=== PATIENT | female | born 1935 | race Caucasian/White ===

== ENCOUNTER 2016-12-02 08:10 | Emergency (ER) | payer OTHER, MEDICARE, MEDICAID ==
[~2016-12-02] VITALS: Ht 152.4 cm; Wt 65.0 kg
[~2016-12-02 08:10] MED LIST: AMPI250 PO; ATOR40TA PO; BISA10R PR; BUPR150T3 PO; CANA100T PO; CARV6.252 PO; CITA20TA4 PO; CRAN425C2 PO; DEPA500T3 PO; DIFL200T PO; FERR324T4 PO; FLON0.053 EACH NARE; FOSA70TA PO; FOSI10TA4 PO; GABA300C3 PO; GLUC1KIT IM; HUMSS SQ; ISOS30 PO; LASI20TA PO; LORA0.5T PO; LORA10TA PO; MEMA7CAP PO; MILKSUS5 PO; OMEP20TA PO; RIVA15 PO; ROBISYP6 PO; ULTR50TA PO; VITA500C PO; ZINC220T PO
--- NOTE | 2016-12-02 08:21 | PD ---
HPI Chief Complaint: fall Time Seen by Provider: 08:12 Travel History International Travel<30 days: No Contact w/Intl Traveler<30days: No Traveled to known affect area: No History of Present Illness HPI 81-year-old female came to the emergency room with history of possible fall from her wheelchair this morning. Patient is a [facility] resident and was found on the floor in a position. Upon asking the staff found out that she did fall and hit her head. Patient is on Xarelto and they were concerned about internal head injury. Patient is awake but not fully oriented but that's her baseline as per the staff and paramedics. She is answering questions and upon asking says her forehead hurts. 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 Patient is wheelchair-bound. No history of vomiting. Vital signs were within acceptable limits. Patient is diabetic and her blood glucose level by paramedics was 95. Patient is a DNR. Currently there is no family member in the room. PFSH Past Medical History Narrative Medical List of her past medical, surgical, social and family history is reviewed from the nursing note. Hx Anticoagulant Therapy: Yes Anemia: Yes Anxiety: Yes Depression: Yes Cardiovascular Problems: Yes (chf) High Cholesterol: Yes Congestive Heart Failure: Yes Cerebrovascular Accident: Yes Dementia: Yes Diabetes: Yes (type 2) Diminished Hearing: No Diverticulitis: Yes Gastrointestinal Disorders: Yes (diverticulitis current) Genitourinary: Yes (uti current) Hiatal Hernia: Yes Hypertension: Yes Musculoskeletal: Yes (OSTEOPOROSIS) Neurologic: Yes (cva left sided weakness , neuropathy) Respiratory: Yes (PE) Seizures: Yes Ulcer: Yes (sacral) Menopausal: Yes Past Surgical History Cardiac Surgery: Yes (HYPERTROPHY SX A TEENAGER) Hysterectomy: Yes Social History Alcohol Use: No Tobacco Use: No Substance Use: No Allergies-Medications (Allergen,Severity, Reaction): Coded Allergies: Acetaminophen (Unverified Allergy, Severe, 12/18/15) Sulfa (Unverified Allergy, Severe, 12/18/15) Comments List of her allergies reviewed from the nursing note Reported Meds & Prescriptions Reported Meds & Active Scripts Active Macrobid (Nitrofurantoin Monoh/Nitrofur Macro) 100 Mg Cap 100 Mg PO BID 10 Days Invokana (Canagliflozin) 100 Mg Tab 100 Mg PO DAILY@0600 Ferrous Sulfate 325 Mg Tab 325 Mg PO BID 30 Days Ultram (Tramadol HCl) 50 Mg Tab 50 Mg PO TID PRN Reported Xarelto 15 Mg Tab (Rivaroxaban) 15 Mg Tab 15 Mg PO DAILY Depakote ER 500 mg (Divalproex Sodium) 500 Mg Tab 1 Tab PO DAILY Ampicillin Cap 250 Mg (Ampicillin) 250 Mg Cap 250 Mg PO Ascorbic Acid 500 Mg Tab 500 Mg PO BID Zinc Sulfate 220 Mg Tab 220 Mg PO DAILY Diflucan 200 mg (Fluconazole) 200 Mg Tab 200 Mg PO DAILY Namenda XR (Memantine HCl) 7 Mg Caper 7 Mg PO DAILY Administer without regard to meals. Extended release capsules may be swallowed whole or entire contents of capsule may be sprinkled on applesauce and swallowed immediately; do not chew, crush, or divide. Cranberry (Cranberry (Vaccinium Macrocarp) 425 Mg Cap 425 Mg PO HS Robitussin Dm (Dextromethorphan-Guaifenesin) Syp 10 Ml PO Q6HR PRN Bupropion Hcl Xl (Bupropion HCl) 150 Mg Tab 150 Mg PO DAILY Humalog (Insulin Human Lispro) 100 Unit/Ml Inj 0-15 Units SQ ACHS PRN IF 0-200=0 UNITS, 201-250=2 UNITS, 251-300=4 UNITS, 301-350=7 UNITS, 351-400=10 UNITS > 400 GIVE 15 UNITS, RECHECK IN 1HR, CALL Lorazepam 0.5 Mg Tab 0.5 Mg PO TID PRN Omeprazole 20 mg (Omeprazole) 20 Mg Tab 20 Mg PO DAILY Milk Of Magnesia (Magnesium Hydroxide) 1 Katie Katie 30 Ml PO HS PRN Glucagon Emergency Kit (Glucagon (Rdna)) 1 Mg Kit 1 Mg IM DIRECTED PRN MAY GIVE NEEDED FOR BLOOD SUGAR BELOW 50-MAY REPEAT X1 IF BLOOD SUGAR IS STILL BELOW 80 IN 30 MINUTES Lasix (Furosemide) 20 Mg Tab 20 Mg PO DAILY 30 Days Dulcolax 10 Mg Supp (Bisacodyl) 10 Mg Supp 10 Mg DE DAILY PRN IF NO RESULTS 1 DAY AFTER MILK OF MAG Carvedilol 6.25 mg (Carvedilol) 6.25 Mg Tab 6.25 Mg PO BID Citalopram Hydrobromide 20 Mg Tab 20 Mg PO DAILY Atorvastatin 40 mg (Atorvastatin Calcium) 40 Mg Tab 40 Mg PO HS Claritin 10 Mg Tab (Loratadine) 10 Mg Tab 10 Mg PO DAILY Imdur 30 Mg (Isosorbide Mononitrate) 30 Mg Tabcr 30 Mg PO DAILY Monopril (Fosinopril Sodium) 10 Mg Tab 5 Mg PO DAILY Gabapentin 300 Mg Cap 300 Mg PO BID Xarelto 15 Mg Tab (Rivaroxaban) 15 Mg Tab 15 Mg PO DAILY Flonase (Fluticasone Propionate) 0.05 % Naspr 2 Spr EACH NARE DAILY Fosamax (Alendronate Sodium) 70 Mg Tab 70 Mg PO Q7D ON MONDAYS - TAKE 30 MINUTES BEFORE THE MORNING MEAL, ONLY WATER Narrative Medication List of her home medications reviewed from the nursing note. Review of Systems Except as stated in HPI: all other systems reviewed are Neg Physical Exam Narrative GENERAL: Awake, alert, elderly but looks older than her age, nonambulatory SKIN: Focused skin assessment warm/dry. Mid forehead abrasion. HEAD: Atraumatic. Normocephalic. EYES: Pupils equal and round. No scleral icterus. No injection or drainage. ENT: No nasal bleeding or discharge. Mucous membranes pink and moist. NECK: Trachea midline. No JVD. CARDIOVASCULAR: Regular rate and rhythm. No murmur appreciated. RESPIRATORY: No accessory muscle use. Clear to auscultation. Breath sounds equal bilaterally. GASTROINTESTINAL: Abdomen soft, non-tender, nondistended. Hepatic and splenic margins not palpable. MUSCULOSKELETAL: No obvious deformities. No clubbing. No cyanosis. No edema. NEUROLOGICAL: Awake and alert. No obvious cranial nerve deficits. Bilateral lower extremity contractures and left upper extremity weakness. Normal speech. PSYCHIATRIC: Appropriate mood and affect; insight and judgment normal. Data Data Last Documented VS Vital Signs Date Time Temp Pulse Resp B/P Pulse Ox O2 Delivery O2 Flow Rate FiO2 12/02/16 11:44 78 18 156/81 94 12/02/16 10:16 Room Air 12/02/16 08:[address] Brain W/O Iv Contrast(Rout) (12/02/16 ) Urinalysis - C+S If Indicated (12/02/16 08:29) Urine Culture (12/02/16 08:35) Nitrofurantoin Monohyd Macrocr (Macrobid (12/02/16 10:00) Labs Laboratory Tests Test 12/02/16 08:35 Urine Color YELLOW Urine Turbidity HAZY Urine pH 6.5 Urine Specific [facility] 1.017 Urine Protein NEG mg/dL Urine Glucose (UA) 1000 mg/dL Urine Ketones NEG mg/dL Urine Occult Blood NEG Urine Nitrite POS Urine Bilirubin NEG Urine Urobilinogen LESS THAN 2.0 MG/DL Urine Leukocyte Esterase MOD Urine WBC 9-14 /hpf Urine WBC Clumps RARE Urine Squamous Epithelial 0-5 /hpf Cells Urine Bacteria MANY /hpf Microscopic Urinalysis Comment CATH-CULTURE IND MDM Medical Decision Making Medical Screen Exam Complete: Yes Emergency Medical Condition: Yes Medical Record Reviewed: Yes Differential Diagnosis Syncope, fall due to imbalance, intracranial bleed, UTI Narrative Course 9:12 AM patient is a DNR currently. In my opinion patient probably lost her balance from the wheelchair and tipped over and in the process hit her forehead. She was unable to get up from the floor given her immobilized status and hence needed to be helped. I decided to stick myself to just a CAT scan of her head and a UA at this point. She will be discharged home if there is no intracranial bleed. Awaiting for those test results. 9:51 AM UA is back and suggestive of UTI. I've given her a dose of Macrobid. She will be discharged home. Procedures EKG Prior to Arrival: No Diagnosis Primary Impression: Fall Qualified Code: W19.XXXA - Fall, initial encounter Additional Impression: UTI (urinary tract infection) Qualified Code: N39.0 - Urinary tract infection without hematuria, site unspecified Referrals: Primary Care Physician 2 days Additional Instructions: Please return to the ER if the condition worsens or any other new concerns. Otherwise follow-up with your primary care. Take the medication as per the prescription direction. Med/Other Pt SpecificInfo: Prescription(s) given Scripts Nitrofurantoin Monohydrate Macrocrystals (Macrobid)100 Mg Acy334 Mg PO BID 10 Days Ref 0 Prov:Urban Barrett MD 12/02/16 Disposition: 01 DISCHARGE HOME Condition: Stable (ERASED) Urban Barrett MD Dec 02, 2016 08:21
[2016-12-02 08:29] VITALS: BP 123/92; PULSE 70; RESP 16; TEMP 97; O2SAT 96
[2016-12-02 08:35] VITALS: BP 123/92; PULSE 70; RESP 18; TEMP 98.7; O2SAT 96
[2016-12-02 09:23] LABS: BLOOD, URINE NEG (NEG); GLUCOSE,URINE 1000 mg/dL (NEG); KETONE, URINE NEG (NEG); PH, URINE 6.5 (5.0-8.5); URINE COLOR YELLOW (YELLW/STRAW)
--- NOTE | 2016-12-02 09:24 | RADRPT ---
EXAM DATE/TIME: 12/02/2016 09:15 [facility] COMPARISON: CT BRAIN W/O CONTRAST, December 18, 2015, 22:11. INDICATIONS : Fall from bed today. RADIATION DOSE: 56.35 CTDIvol (mGy) MEDICAL HISTORY : Stroke. Hypertension. diabetes SURGICAL HISTORY : None. ENCOUNTER: Initial ACUITY: 1 day PAIN SCALE: 4/10 LOCATION: Bilateral head TECHNIQUE: Multiple contiguous axial images were obtained of the head. Using automated exposure control and adj ustment of the mA and/or kV according to patient size, radiation dose was kept as low as reasonably a chievable to obtain optimal diagnostic quality images. FINDINGS: There is marked central and cortical atrophy with dilatation of ventricular and sulcal spaces. There is no parenchymal hemorrhage, acute infarction or mass lesion identified. Lacunar infarcts are present basalganglia bilaterally. There are no extra-axial fluid collections appreciated. The post erior fossa is unremarkable with midline fourth ventricle. The portion of the orbits and paranasal s inuses visualized are unremarkable. CONCLUSION: Atrophy, lacunar infarcts otherwise negative for acute process. Margarito Ireland MD FACR on December 02, 2016 at 9:21 Board Certified Radiologist. This report was verified electronically.
[2016-12-02 09:42] LABS: BACTERIA, URINE MANY /hpf
[2016-12-02 09:43] LABS: COMMENT (UR) CATH-CULTURE IND; CULTURE IF INDICATED CATH CULTURE IND; SQUAMOUS EPITHELIAL CELL URINE 0-5 /hpf (0-5)
[2016-12-02 09:44] LABS: NITRITE,URINE POS (NEG)
[2016-12-02] MEDS ORDERED: MACR100C2 PO (09:52)
[2016-12-02] MEDS ORDERED: NITROFURANTOIN MONOHYD MACROCR 100 MG CAP PO ONE (10:00)
[2016-12-02 10:16] VITALS: BP 158/63; PULSE 71; RESP 18; O2SAT 95
[2016-12-02 11:44] VITALS: BP 156/81
== END 2016-12-02 11:45 | disposition home or self-care (01) ==
LOC: NEPC 08:10
DX: S09.90XA Unspecified injury of head, initial encounter (principal); N39.0 Urinary tract infection, site not specified; B96.29 Other Escherichia coli [E. coli] as the cause of diseases classified elsewhere; W06.XXXA Fall from bed, initial encounter; Y92.129 Unspecified place in nursing home as the place of occurrence of the external cause
CPT/HCPCS: 70450; 81001; 87077; 87086; 87186; 99285